=== PATIENT | male | born 1975 | race African-American/Black ===

== ENCOUNTER 2017-03-26 18:25 | Emergency (ER) | payer OTHER, BC ==
[~2017-03-26] VITALS: Ht 175.3 cm; Wt 116.9 kg
[~2017-03-26 18:25] MED LIST: AMIODARONE HCL200 MG PO; ANASPAZ0.125 MG PO; CARVEDILOL25 MG PO; CENTRUM SILVER1 EAC3 PO; CHLOROTHIAZIDE 500 MG IV; COREG25 M1 PO; COUMADIN4 MG PO; COUMADIN6 MG PO; Cardizem CD,Cartia X PO; Cordarone, Pacerone PO; Coreg PO; DAILY VITAMIN1 EAC8 PO; DIGOX125 MCG PO; DIGOX250 MCG PO; DIGOXIN250 MCG PO; DIURIL PO; FLECANIDE; FUROSEMIDE40 MG PO; FUROSEMIDE80 MG PO; GAS-X80 MG PO; HYOSCYAMINE0.125 MG PO; K-DUR10 MEQ PO; KLOR-CON 1010 ME1 PO; LASIX40 MG PO; LISINOPRIL; LISINOPRIL20 MG PO; LISINOPRIL5 MG PO; LOVENOX40 MG/0.4 SC; LOW DOSE ASPIRI81 M1 PO; Lovenox SC; METOPROLOL; METOPROLOL SUCC50 MG PO; METOPROLOL TART50 MG PO; MYLICON,MYLANTA80 MG PO; Micro-K,K-Tab,K-Dur, PO; NEXIUM20 MG PO; OXECTA5 MG PO; OXYCODONE HCL5 MG PO; PACERONE200 MG PO; PACERONE400 MG PO; PANTOPRAZOLE SO40 MG PO; PROTONIX40 MG PO; PROVENTIL HFA6.7 GM IH; TAMBOCOR100 MG PO; WARFARIN SODIUM2 MG PO; XARELTO20 MG PO; Zestril,Prinivil PO; [UNRECOGNIZED DRUG - REMARK]
[2017-03-26 19:41] VITALS: BP 97/81
== END 2017-03-26 19:42 | disposition home or self-care (01) ==
LOC: EME 18:25
DX: S39.012A Strain of muscle, fascia and tendon of lower back, initial encounter (principal); V49.40XA Driver injured in collision with unspecified motor vehicles in traffic accident, initial encounter
CPT/HCPCS: 99281; 99283